=== PATIENT | female | born 1970 | race Caucasian/White ===

== ENCOUNTER 2021-10-14 14:29 | Outpatient (CLI) | payer OTHER ==
[2021-10-14 15:43] LABS: Hemoglobin 13.6 g/dL (12.0-15.5); Mean Corpuscular HGB CONC 33.8 g/dL (32.0-36.0); Mean Corpuscular Hemoglobin 32.2 pg (27.0-33.0); Mean Platelet Volume 9.7 fl (7.4-10.4); Platelet Count 174 10x3/uL (150-450); RBC Distribution Width 13.3 % (11.5-14.5); Red Blood Cell (RBC) Count 4.23 10x6/uL (3.90-5.03); White Blood Cell (WBC) Count 5.6 10x3/uL (3.5-10.5)
[2021-10-14 16:09] LABS: BHCG - Serum Negative (NEGATIVE); Pregs Control Background? CLEAR/WHITE (CLR/WHITE); Pregs Control Bar Appear? YES (CONTROL BAR)
[2021-10-14 16:17] LABS: Anion Gap 15 mmol/L (10-20); BUN (Urea Nitrogen) 7 mg/dL (7.0-18.7); Calc. Creatinine Clearance 0 mL/min (70-130); Calcium 9.2 mg/dL (7.8-10.44); Carbon Dioxide 27 mmol/L (22-29); Chloride 104 mmol/L (98-107); Glucose 97 mg/dL (70-105); Potassium 3.8 mmol/L (3.5-5.1); Sodium 142 mmol/L (136-145)
== END 2021-10-14 14:30 | disposition home or self-care (01) ==
LOC: CSHLAB 14:29
PROVIDERS: ATTEND Obstetrics & Gynecology
DX: Z01.818 Encounter for other preprocedural examination (principal); Z20.822 Contact with and (suspected) exposure to COVID-19; D06.9 Carcinoma in situ of cervix, unspecified
CPT/HCPCS: 71046; 80048; 84703; 85027; 86850; 86900; 86901; U0003; U0005

== ENCOUNTER 2021-10-17 05:47 | Day surgery (SDC) | payer OTHER ==
[2021-10-15 14:32] VITALS: BMI 25.8
[2021-10-17] MEDS ORDERED: EPINEPHrine 1 MG/ML AMP ONE (06:20)
[2021-10-17] MEDS ORDERED: Ferric Subsulfate (ASTRINGYN) 8 GM VIAL ONE ×2 (06:21→08:00)
[2021-10-17] MEDS ORDERED: Fentanyl 100 MCG/2 ML VIAL ONE (06:54)
[2021-10-17] MEDS ORDERED: Dexamethasone 4 mg/ml Vial ONE (06:54)
[2021-10-17] MEDS ORDERED: Lidocaine 1% PF 5 ML VIAL ONE (06:54)
[2021-10-17] MEDS ORDERED: Midazolam HCl 2 mg/2 ml Vial ONE (06:54)
[2021-10-17] MEDS ORDERED: Ondansetron PF 4 MG/2 ML Vial ONE (06:54)
[2021-10-17] MEDS ORDERED: PROPOFOL 20 ML ONE (06:55)
[2021-10-17] MEDS ORDERED: metroNIDAZOLE 500 MG/100 ML BAG ONE (06:58)
[2021-10-17] MEDS ORDERED: Potassium Iodide Solution 14 ML BOT ONE ×2 (07:22→08:00)
[2021-10-17] MEDS ORDERED: Bupivacaine PF 0.5% 30 ML VIAL ONE (07:22)
[2021-10-17] MEDS ORDERED: Glycopyrrolate 0.2 MG/ML 5 ML SYRINGE ONE (07:28)
[2021-10-17] MEDS ORDERED: Ketorolac Tromethamine 30 MG/ML VIAL ONE (07:31)
== END 2021-10-17 08:40 | disposition home or self-care (01) ==
LOC: CSHSDC 05:47
PROVIDERS: ATTEND Obstetrics & Gynecology
PROC: 0UBC7ZX Excision of Cervix, Via Natural or Artificial Opening, Diagnostic (ICD-10-PCS; principal; 2021-10-17)
DX: N72 Inflammatory disease of cervix uteri (principal); N87.9 Dysplasia of cervix uteri, unspecified; F17.210 Nicotine dependence, cigarettes, uncomplicated; Z85.3 Personal history of malignant neoplasm of breast; Z79.899 Other long term (current) drug therapy; Z88.0 Allergy status to penicillin; Z88.5 Allergy status to narcotic agent; Z91.040 Latex allergy status; Z91.048 Other nonmedicinal substance allergy status
CPT/HCPCS: 88305; 88307; 88341; 88342; J0171; J1100; J1885; J2250; J2405; J2704; J3010; S0020

== ENCOUNTER 2023-08-08 17:48 | Emergency (ER) | payer OTHER | END 2023-08-08 18:50 | disposition home or self-care (01) | LOC: CSHERS 17:48 | DX: H02.054 Trichiasis without entropion left upper eyelid (principal); F17.210 Nicotine dependence, cigarettes, uncomplicated | CPT/HCPCS: 99283 ==